=== PATIENT | female | born 1995 | race Caucasian/White ===

== ENCOUNTER 2019-06-23 14:17 | Emergency (ER) | payer BC ==
[~2019-06-23] VITALS: Ht 162.6 cm; Wt 65.0 kg
--- NOTE | 2019-06-23 17:36 | NUR ---
FIRST CONTACT WITH PT. [facility], SOB, LIGHTHEADED, DIZZINESS, INCREASE IN HR AND BP FOR 4 DAYS. PT'S AOX4. RESPS EVEN AND UNLABORED. BP/SPO2 MONITORS IN PLACE. CALL LIGHT WITHIN REACH.
--- NOTE | 2019-06-23 17:50 | NUR ---
PT AMB TO BR AND BACK TO ROOM WITH STEADY GAIT.
[2019-06-23] MEDS ORDERED: KETOROLAC 30 MG/1 ML ONE (17:52)
[2019-06-23] MEDS ORDERED: LORazepam 2 MG/ML, 1ML ONE (17:53)
[2019-06-23] MEDS ORDERED: LORazepam 2 MG/ML, 1ML IM ONE (18:00)
[2019-06-23] MEDS ORDERED: KETOROLAC 30 MG/1 ML IM ONE (18:00)
--- NOTE | 2019-06-23 18:05 | NUR ---
pt medicated per emar. pt tolerated well.
[2019-06-23 18:26] VITALS: BP 132/84
--- NOTE | 2019-06-23 18:26 | NUR ---
Patient given discharge instructions and they have confirmed that they understand the instructions. Patient ambulatory with steady gait.
== END 2019-06-23 18:28 ==
LOC: ED 18:25
DX: G44.219 Episodic tension-type headache, not intractable (principal); F41.1 Generalized anxiety disorder
CPT/HCPCS: 71046; 81025; 96372; 99284; J1885; J2060

== ENCOUNTER 2020-03-07 10:59 | Emergency (ER) | payer MEDICAID ==
[~2020-03-07] VITALS: Ht 162.6 cm; Wt 85.3 kg
[2020-03-07 11:04] VITALS: BP 137/92
[2020-03-07 12:00] LABS: BASOPHILS % (AUTO) 0 % (0-1); EOSINOPHILS % (AUTO) 1 % (1-7); LYMPHOCYTES % (AUTO) 16 % (22-44); MEAN CORPUSCULAR HEMOGLOBIN 32.3 pg (27.0-34.8); MEAN CORPUSCULAR HGB CONC 33.5 g/dL (32.4-35.8); MEAN PLATELET VOLUME 7.2 fL (7.4-10.4); MONOCYTES % (AUTO) 7 % (2-9); NEUTROPHILS % (AUTO) 76 % (42-75); PLATELET COUNT 371 x10^3/uL (130-400); RED BLOOD COUNT 4.45 x10^6/uL (3.82-5.3)
[2020-03-07 12:08] LABS: MD NO
[2020-03-07 12:22] LABS: ALKALINE PHOSPHATASE 58 U/L (45-117); BILIRUBIN,TOTAL 0.4 mg/dL (0.2-1.0); FREE T4 (FREE THYROXINE) 0.97 ng/dL (0.76-1.46)
[2020-03-07 12:24] LABS: ALANINE AMINOTRANSFERASE 17 U/L (12-78); ALBUMIN 3.8 g/dL (3.4-5.0); ANION GAP 7 mmol/L (5-15); CALCIUM 9.1 mg/dL (8.5-10.1); CHLORIDE 110 mmol/L (98-107)
== END 2020-03-07 13:22 | disposition home or self-care (01) ==
LOC: ED 13:00
DX: L04.0 Acute lymphadenitis of face, head and neck (principal)
CPT/HCPCS: 36415; 80053; 84439; 84443; 85025; 86308; 99283